=== PATIENT | male | born 1950 | race Caucasian/White ===

== ENCOUNTER 2018-12-03 15:47 | Emergency (ER) | payer MEDICARE, OTHER ==
[~2018-12-03] VITALS: Ht 170.2 cm; Wt 64.4 kg
[~2018-12-03 15:47] MED LIST: ADVIL200 MG PO; ASPIRIN EC325 MG PO; CEPHALEXIN500 MG PO; NORCO 5-325 TA1 EACH PO; RANITIDINE HCL150 MG PO
== END 2018-12-03 16:30 | disposition home or self-care (01) ==
LOC: ED 15:47
DX: S61.012A Laceration without foreign body of left thumb without damage to nail, initial encounter (principal); X78.9XXA Intentional self-harm by unspecified sharp object, initial encounter

== ENCOUNTER 2024-09-13 12:20 | Emergency (ER) | payer MEDICARE, OTHER ==
[~2024-09-13] VITALS: Ht 170.2 cm; Wt 74.8 kg
[2024-09-13 13:05] VITALS: BP 128/84
== END 2024-09-13 13:05 | disposition home or self-care (01) ==
LOC: ED 12:20
DX: K94.23 Gastrostomy malfunction (principal); Z88.5 Allergy status to narcotic agent
CPT/HCPCS: 43762; 99282-25

== ENCOUNTER 2024-12-19 08:50 | Day surgery (SDC) | payer MEDICARE, OTHER ==
[~2024-12-19] VITALS: Ht 167.6 cm; Wt 78.0 kg
[~2024-12-19 08:50] MED LIST changes: +IBLOOD GLUCOSE TEST STRIP 1 EA TEST VI PRN; +LACTATED RINGER'S 1,000 ML IV SCH; +LIDOCAINE HCL 1% 5 ML SDV INJ ONE; +LIDOCAINE HCL 2% 5 ML SDV ONE
[2024-12-19 09:23] VITALS: BP 125/72
[2024-12-19 11:06] VITALS: BP 115/75
[2024-12-19 12:20] VITALS: BP 92/66
--- NOTE | 2024-12-19 13:06 | NUR ---
1106: PATIENT BACK IN DAY SURGERY ROOM AFTER PARTIAL COLONOSCOPY. PATIENT RECEIVED NO ANESTHESIA MEDS FOR COLONOSCOPY DUE TO DIFFICULTY AIRWAY AND ASPIRATION RISK. PATIENT WIDE AWAKE. VS CHECKED. DENIES PAIN. IV SITE WNL. IV FLUIDS RUNNING. CALL LIGHT WITHIN REACH. PATIENT WAITING FOR BARIUM ENEMA APPOINTMENT IN IMAGING. 1140: PATIENT ASSISTED UP TO BATHROOM. GAIT STEADY. 1220: VS CHECKED. PATIENT GIVEN DISCHARGE INSTRUCTIONS. CALL LIGHT WITHIN REACH. IV FLUIDS RUNNINGS. IV SITE WNL.
--- NOTE | 2024-12-19 13:25 | NUR ---
IV DC'D WNL. TIP INTACT. DRESSING APPLIED. PATIENT TO IMAGING DEPARTMENT WITH IMAGING STAFF VIA WHEELCHAIR.
--- NOTE | 2024-12-19 15:56 | NUR ---
1440: PATIENT BACK IN DAY SURGERY ROOM FROM IMAGING DEPARTMENT. PATIENT GETTING DRESSED. 1450: PATIENT DISCHARGED TO HOME AMBULATORY. THIS RN WALKED WITH PATIENT OUT OF DEPARTMENT TO SWITCHBOARD WHERE HE MET UP WITH HIS RIDE.
== END 2024-12-19 14:50 | disposition home or self-care (01) ==
LOC: DS 08:50
PROVIDERS: ATTEND Surgery
PROC: 0DJD8ZZ Inspection of Lower Intestinal Tract, Via Natural or Artificial Opening Endoscopic (ICD-10-PCS; principal; 2024-12-19 10:40)
DX: Z12.11 Encounter for screening for malignant neoplasm of colon (principal); K57.30 Diverticulosis of large intestine without perforation or abscess without bleeding; Z93.1 Gastrostomy status; Z88.5 Allergy status to narcotic agent; Z88.8 Allergy status to other drugs, medicaments and biological substances
CPT/HCPCS: 00812; 74280; J2003; J2704; J7121